=== PATIENT | male | born 1965 | race Two or more races ===

== ENCOUNTER 2018-01-19 13:32 | Emergency (ER) | payer OTHER ==
[2018-01-19] MEDS ORDERED: Acetaminophen/HYDROcodone 325-10 MG Tab PO ONE (14:28)
--- NOTE | 2018-01-19 14:34 | EDM.PDOC ---
ED HPI GENERAL MEDICAL PROBLEM - General Chief Complaint: ENT Problem Stated Complaint: SEVERE TOOTH ACHE Time Seen by Provider: 01/19/18 14:19 Source of Information: Reports: Patient History Limitations: Reports: No Limitations - History of Present Illness INITIAL COMMENTS - FREE TEXT/NARRATIVE: 52-year-old male presents for evaluation and treatment of pain to the right lower tooth. Started last night. He has tried oragel, Tylenol, Motrin, rinses and other at home treatments without any relief. He reports pain to the right lower tooth and a bad taste in his mouth. States this happened about a year ago to the tooth next to this one. He saw dentist and had it taken out. He denies any fevers, chills, nausea, vomiting or any facial swelling. Reports pain is in the right lower jaw and radiates up towards his right ear. Patient is from [place]. Dentist resides in [place]. Right Oral/Mouth Pain Score (Numeric/FACES): 10 - Related Data Allergies Allergy/AdvReac Type Severity Reaction Status Date / Time No Known Allergies Allergy Verified 01/19/18 13:46 Home Meds: Home Meds Amoxicillin/Clavulanate K [Augmentin 875-125 MG] 1 tab PO BID #20 tab 01/19/18 [ Rx] Aspirin 1 tab PO DAILY 01/19/18 [History] Hydrocodone/Acetaminophen [Hydrocodon-Acetaminophen 5-325] 1 each PO Q4HR PRN # 15 tablet 01/19/18 [Rx] Metoprolol Tartrate 1 tab PO BID 01/19/18 [History] Tricagrelor 1 tab PO BID 01/19/18 [History] atorvaSTATin [Lipitor] 1 tab PO DAILY 01/19/18 [History] Past Medical History Cardiovascular History: Reports: OR, Stents Social & Family History - Tobacco Use Smoking Status *Q: Never Smoker Second Hand Smoke Exposure: No - Caffeine Use Caffeine Use: Reports: None - Recreational Drug Use Recreational Drug Use: No ED ROS ENT - Review of Systems Review Of Systems: See Below Constitutional: Denies: Fever, Chills HEENT: Reports: Dental Pain (right lower jaw), Ear Pain (right) GI/Abdominal: Denies: Nausea, Vomiting ED EXAM, ENT - Physical Exam Exam: See Below Exam Limited By: No Limitations General Appearance: Alert, WD/WN, No Apparent Distress Eye Exam: Bilateral Eye: Normal Inspection Ears: Normal External Exam, Normal Canal, Hearing Grossly Normal, Normal TMs Nose: Normal Inspection Mouth/Throat: Normal Inspection, Normal Lips, Normal Oropharynx, Dental Abcess ( #31), Dental Pain (#31) Respiratory/Chest: No Respiratory Distress, Lungs Clear, Normal Breath Sounds Cardiovascular: Normal Peripheral Pulses, Regular Rate, Rhythm, No Murmur Neurological: Alert, Oriented, Normal Cognition Psychiatric: Normal Affect, Normal Mood Skin: Warm, Dry, Normal Color Course - Vital Signs Last Recorded V/S: Last Vital Signs Temp 97.8 F 01/19/18 13:46 Pulse 88 01/19/18 13:46 Resp 18 01/19/18 13:46 BP 146/107 H 01/19/18 13:46 Pulse Ox 95 01/19/18 13:46 - Orders/Labs/Meds Meds: Medications Discontinued Medications Generic Name Dose Route Start Last Admin Trade Name Freq PRN Reason Stop Dose Admin Hydrocodone Bitart/Acetaminophen 1 tab 01/19/18 14:28 01/19/18 14:38 [place] 325-10 Mg PO 01/19/18 14:29 2 tab ONETIME ONE Administration Departure - Departure Time of Disposition: 14:30 Disposition: Home, Self-Care 01 Condition: Fair Clinical Impression: Dental abscess, Pain, dental - Discharge Information *PRESCRIPTION DRUG MONITORING PROGRAM REVIEWED*: Yes *COPY OF PRESCRIPTION DRUG MONITORING REPORT IN PATIENT BELEN: No Prescriptions: Hydrocodone/Acetaminophen [Hydrocodon-Acetaminophen 5-325] 1 each PO Q4HR PRN # 15 tablet PRN Reason: Pain Amoxicillin/Clavulanate K [Augmentin 875-125 MG] 1 tab PO BID #20 tab Instructions: Dental Abscess, [id number] Referrals: PCP,Not In Area [Primary Care Provider] - Forms: ED Department Discharge Additional Instructions: you were given medication in the ER that can affect your ability to drive and operate machinery. Do not drive or operate machinery within 10 hours of taking prescription narcotic pain medication. Follow-up with the dentist as soon as possible you are able to. a list of local dentist in [place] has been prescribed provided for you should you need a local recommendation. Augmentin 1 tablet twice a day for 10 days. Take this with food. Recommend yogurt or probiotic to help reduce side effects of upset stomach, nausea, diarrhea. [id number] ibuprofen as needed for pain. May take up to 3200 mg of ibuprofen 1 day. For pain not relieved by ibuprofen may take [place]. Take 1 or 2 tabs every 6 hours. [place] is habit-forming, take as little as needed to control your pain. Do not drive or operate machinery within 10 hours of taking [place]. please return to ER for symptoms change or worsen.
== END 2018-01-19 14:42 | disposition home or self-care (01) ==
LOC: JD.ED 13:32 → EDBD 13:32 → JD.ED 14:42
DX: K04.7 Periapical abscess without sinus (principal); Z79.82 Long term (current) use of aspirin
CPT/HCPCS: 99283; A9270